=== PATIENT | male | born 1975 | race Caucasian/White ===

== ENCOUNTER → 2023-11-17 06:29 | Day surgery (SDC) | payer OTHER, SELFPAY | LOC: GI 06:29 | PROVIDERS: ATTENDING PHYSICIAN Internal Medicine Gastroenterology | DX: Z12.11 Encounter for screening for malignant neoplasm of colon (principal); K64.0 First degree hemorrhoids | CPT/HCPCS: G0121 ==

== ENCOUNTER → 2023-11-27 | Outpatient (REF) | payer OTHER, SELFPAY | LOC: DHSLP | PROVIDERS: ATTENDING PHYSICIAN Internal Medicine; FAMILY PHYSICIAN Family Medicine | DX: G47.33 Obstructive sleep apnea (adult) (pediatric) (principal) | CPT/HCPCS: 95800 ==